=== PATIENT | female | born 1990 | race Caucasian/White ===

== ENCOUNTER 2016-10-23 15:22 | Inpatient (IN) | payer OTHER ==
[~2016-10-23] VITALS: Ht 154.9 cm; Wt 97.5 kg
[2016-10-23 16:20] LABS: ABSOLUTE BASOPHIL COUNT 0 /CUMM (0.0-0.2); ABSOLUTE EOSINOPHIL COUNT 0 /CUMM (0.0-0.7); ABSOLUTE LYMPH COUNT 1.6 /CUMM (1.2-3.4); ABSOLUTE MONOCYTE COUNT 0.7 /CUMM (0.10-0.60); BASOPHIL % 0.3 % (0.0-2.0); EOSINOPHIL % 0.4 % (0-5); HEMATOCRIT 36.5 % (37-47); MEAN CORPUSCULAR HGB 27.5 PG (27.0-31.0); MEAN CORPUSCULAR HGB CONC 33.5 G/DL (33.0-37.0); MEAN CORPUSCULAR VOLUME 81.9 FL (81.0-99.0); MEAN PLATELET VOLUME 10.2 FL (7.4-10.4); PLATELET COUNT 150 /CUMM (130-400); RBC DISTRIBUTION WIDTH 19.6 % (11.5-14.5); RED BLOOD CELL CT 4.46 /CUMM (4.20-5.40); WHITE BLOOD CELL COUNT 9.4 /CUMM (4.8-10.8)
[2016-10-23] MEDS ORDERED: PRENATABS RX T1 EACH PO (16:38)
[2016-10-23] MEDS ORDERED: [UNRECOGNIZED DRUG - OTHER] PO (16:43)
[2016-10-23] MEDS ORDERED: VALACYCLOVIR500 M1 PO (16:44)
--- NOTE | 2016-10-23 18:57 | History & Physical ---
General Information and HPI MD Statement: I have seen and personally examined JUAN JOSE RICHTER and documented this H&P. The patient is a 26 year old female at [39] weeks and [6] days gestation who presented with a chief complaint of [induction of labor]. Source of Information: patient, old records Exam Limitations: no limitations History of Present Illness: 26 yo LMP of 01/18/2016 an MONTSERRAT of 10/24/2016 and presents at 39 weeks 6/7 days for induction of labor. Indication for the induction of labor is that patient recently complained of itching and blood work was drawn on October 17. The results the October 17 blood work showed that her AST and ALT were both normal and out fractionated bile acid profile showed that her colon cancer was elevated at 2.3 (less than 1.8 within normal limits). But she had normal deoxycholic acid normal chenodeoxycholic acid a normal total bile acids. Due to the presence of 1 elevated bile acids value patient was advised for induction of labor. Issues for this #1 first trimester low progesterone she was supported with Crinone gel and 11 weeks of . #2 history of HSV 2 positive. No outbreaks during the she started Valtrex 500 twice a day at 36 weeks #3 light smoker usually smokes 3 cigarettes a day she apparently quit in 2010 Number for elevated BMI her current BMI is 39.9. She started at at the beginning of with a BMI of 31. Patient has been followed with biweekly biophysical profiles due to the elevated BMI. With the patient being at bedrest with her induction she'll have Alps on her lower extremities #4 exposure to parvovirus her fifth disease during . Patient was found to be parvo immune #5 late onset of cholestasis in . Interestingly enough and early July patient was complaining of itching at that time when she was 24 weeks 6/7 days, bile acid panel was negative at that time. #6 group B strep positive. 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 Last Menstrual Period: 01/18/2016 Estimated Delivery Date: 10/24/2016 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 Home Who Do You Live With? spouse, self Primary Language: Omani Smoking Status: Never Smoked ETOH Use: denies use Illicit Drug Use: denies illicit drug use Review of Systems Review of Systems: NEG FOR CARDIAC, PULMONARY, GI, COMPLAINTS Exam & Diagnostic Data Last 24 Hrs of Vital Signs/I&O AFEBRILE VSS Obstetric Exam Wgt Gained During : 51 Pelvimetry: SHOULD BE OK FOR AVGE SIZED BABY Dilation (cm): 1 Effacement (%): 80 Station: -1 Membranes: intact Fluid: unknown Fundal Height (cm): 39 Multiple Gestation? No Contractions: OCCASIONAL #1 - FHR Baseline: 130 Category: 1 Estimated Weight: 7#6 Presentation: VTX Patient for Induction? Yes Beatty Score Beatty Score Response Value Cervix Position: mid-position 1 Cervix Consistency: soft 2 Cervix Effacement: 60-70% 2 Cervix Dilation: 1-2 cm 1 Cervix Station: -1 2 Total 8 Physical Exam General Appearance Alert, Oriented X3, Cooperative, No Acute Distress Skin No Significant Lesion Cardiovascular Regular Rate Lungs Normal Air Movement Abdomen Normal Bowel Sounds Neurological Normal Gait, Normal Speech Extremities No Tenderness/Swelling Reproductive (FEMALE) Normal female genitalia Labs Blood Type & Rh: O+ Antibody Screen: NEG Hct/Hgb & Platelets #1: 13.4/40 199,000 Hct/Hgb & Platelets #2: 10.8/33.3/188,000 Rubella: IMM VDRL #1: N VDRL #2: N HbsAg: N HIV #1: N HIV #2 N 1 Hr P 3 Hr PG: N/A Group B Strep: POS Initial Ultrasound: 04/24/2016 9 W 6/7 WKS S=D=U/S Anatomy Ultrasound: 06/12/2016 20 W 6/7 NL ANATOMY CX 3.[address] VC Ultrasound for EFW: 10/04/2016 37 WKS 6#13oz 51% Genetic Testing: DECLINED Last 24 Hrs of Labs/Will: Laboratory Tests 10/23/16 1604: CBC w Diff NO MAN DIFF REQ, RBC 4.46, MCV 81.9, MCH 27.5, RDW 19.6 H, MPV 10.2, Gran % 74.0, Lymphocytes % 17.5 L, Monocytes % 7.8, Eosinophils % 0.4, Basophils % 0.3, Absolute Granulocytes 7.0 H, Absolute Lymphocytes 1.6, Absolute Monocytes 0.7 H, Absolute Eosinophils 0, Absolute Basophils 0, PUBS MCHC 33.5, Urine Color YEL, Urine Clarity CLEAR, Urine pH 6.5, Ur Specific [place] 1.010, Urine Protein NEG, Urine Ketones NEG, Urine Nitrite NEG, Urine Bilirubin NEG, Urine Urobilinogen 0.2, Ur Leukocyte Esterase TRACE H, Ur Microscopic SEDIMENT EXAMINED, Urine RBC 1-3, Urine WBC 1-3 H, Ur Epithelial Cells FEW, Urine Bacteria FEW H, Urine Hemoglobin SMALL H, Urine Glucose NEG Assessment/Plan Assessment/Plan: IUP 39 6/7 WEEKS BMI 40 (NEG SHOULDER SCREEN) LATE ONSET CHOLESTASIS H/O HSV (NO PRODROMO/ NO LESIONS @ PRESENT) GR B STR + PLAN: ADMIT, LABS, IVF ALPs FOR LEGS CERVIDIL FOR CX RIPENING OVER NIGHT (CONTIN FHR MONITORING) H/O HSV - VALTREX BOD TIL DELIVERED + GR B STR - ONCE SROM/ ACTIVE LABOR: PCN PROTOCAL As Ranked By This Provider Problem List: 1. 2. BMI 40.0-44.9, adult 3. Cholestasis during 4. Group B streptococcal carriage complicating 5. HSV-2 seropositive Core Measures/Miscellaneous Venous Thromboembolism VTE Risk Factors: Obesity, / VTE Contraindications: Active Bleeding VTE Diagnosis: No Beta Nita Is Beta Nita a Home Med? No Antibiotics Is Patient on Antibiotics? Yes If Yes: prophylaxis Attending Review Statement Attending Statement Attending MD Statement: examined this patient, discussed with family, reviewed EMR data (avail), discussed w/nursing
--- NOTE | 2016-10-24 11:43 | PN- OBGYN ---
Surgical Brief Attending Note Brief Attending Note: Late entry for 8:30 AM 26-year-old, G1 para 0 at 39 weeks 6 days intrauterine , she was admitted for induction of labor due to late onset of cholestasis, GBS positive. She received Cervidil for cervical ripening overnight, she did report feels irregular contractions, 5 out of 10 pain scale. Cervix was 1 cm/70%/-1 when Cervidil was removed this morning around 6 AM. PE: VSS on TOCO: irregular ctxs, FHR baseline 130, moderate variability, + acels, no decels. Plan to start Pitocin for continue induction of labor today, R/B/A of Pitocin of induction of labor discussed with patient, she understand and agreed to proceed , will monitor closely.
--- NOTE | 2016-10-24 15:57 | PN- OBGYN ---
Surgical Brief Attending Note Brief Attending Note: pt is comfortable with epidural. no complaints. pitocin at 5mU/min on TOCO; ctxs q 3 min, FHR baseline 130, moderate variability, + acels, no decels. cervix 4cm/60%/-1 will continue current management, monitor closely
[2016-10-24 23:55] VITALS: BP 128/61
--- NOTE | 2016-10-25 06:47 | PN- OBGYN ---
Surgical Brief Attending Note Brief Attending Note: Late entry for 5 AM pt is comfortable with epidural, c/o intermittent rectal pressure. overnight uneventful. she received IV tylenol for elevated temperature 100.5 x 1 on TOVCO: ctxs q3-4 min, FHR baseline 130, moderate variability, + acels, occasional variable decels. cervix 8-9cm/90%/1 ( as per RN) will continue current management. monitor closely
--- NOTE | 2016-10-25 07:27 | PN- OBGYN ---
Surgical Brief Attending Note Brief Attending Note: No complaints. Has epidural. last examined at 5am was 8-9 cm Is laboring down. On PCN prophylaxis for GBS. VSSAF FHTs 130s reactive TOCO q3-4 min Cvx: deferred a/.p 40 weeks. IOL for cholestasis. anticipate pushing and soon. continue abx.
--- NOTE | 2016-10-25 16:03 | Labor & Delivery Summary ---
Delivery Summary Vaginal Delivery: Vaginal: spontaneous Episiotomy/Lacerations: Episiotomy/Lacerations: 2nd degree Placenta: Placenta: spontanteous, normal, 3 vessel Anesthesia: block Baby's Weight: 7 pounds Apgars - 1 Min: 8 Apgars - 5 Min: 9 Additional Comments: The patient percussed to fully dilated and labor down. She pushed for approximately 1 hour and delivered the head without difficulty. She did very loose nuchal cord which was not reduced and she continued to push. Shoulders and the were delivered without difficulty. Good cry was noted. The was dried and bulb suctioned and placed on the maternal abdomen. Delayed cord clamp was observed and the cord was then clamped and cut. Cord blood was sent. Placenta was delivered intact. Second-degree repair was performed in the usual fashion. The patient tolerated well. Normal blood loss noted.
[2016-10-26 09:07] LABS: ABSOLUTE BASOPHIL COUNT 0 /CUMM (0.0-0.2); ABSOLUTE EOSINOPHIL COUNT 0.1 /CUMM (0.0-0.7); ABSOLUTE GRANULOCYTE CT 9.7 /CUMM (1.4-6.5); ABSOLUTE LYMPH COUNT 2.2 /CUMM (1.2-3.4); ABSOLUTE MONOCYTE COUNT 0.9 /CUMM (0.10-0.60); BASOPHIL % 0.4 % (0.0-2.0); EOSINOPHIL % 0.7 % (0-5); HEMATOCRIT 32.5 % (37-47); MEAN CORPUSCULAR HGB 27.6 PG (27.0-31.0); MEAN CORPUSCULAR HGB CONC 33.1 G/DL (33.0-37.0); MEAN CORPUSCULAR VOLUME 83.4 FL (81.0-99.0); MEAN PLATELET VOLUME 11.1 FL (7.4-10.4); PLATELET COUNT 130 /CUMM (130-400); RBC DISTRIBUTION WIDTH 19.9 % (11.5-14.5); RED BLOOD CELL CT 3.89 /CUMM (4.20-5.40); WHITE BLOOD CELL COUNT 12.9 /CUMM (4.8-10.8)
--- NOTE | 2016-10-26 09:48 | PN- OBGYN ---
Surgical Brief Attending Note Brief Attending Note: no complaints. doing well. ambulating, voiding, tolerating pain and po. nursing. nl lochia vssaf FF@U+1 ext 2+ pedal edema b/l no calf tenderness a/p ppd 1. doing well. s/p IOL for cholestais. s/p . Routine pp care. Reviewed discharge instructions for tomorrow.
[2016-10-26] MEDS ORDERED: IBUPROFEN800 M1 PO (09:49)
--- NOTE | 2016-10-27 10:43 | PN- OBGYN ---
Surgical Brief Attending Note Brief Attending Note: NO COMPLAINTS. DOING WELL. AMBULATING, VOIDING, TOLERATING PAIN AND PO. SMALL TO MOD LOCHIA. +NURSING VSSAF FF@U EXT: NO CALF TENDERNESS, 3+ PEDAL EDEMA B/L A/P PPD 2. DOING WELL. DC TO DAY. PRECAUTIONS ADVISED.
== END 2016-10-27 11:34 | DRG 775 ==
LOC: GNO 15:22
PROVIDERS: Obstetrics & Gynecology; ADMIT Obstetrics & Gynecology
PROC: 10E0XZZ Delivery of Products of Conception, External Approach (ICD-10-PCS; principal; 2016-10-25)
PROC: 3E0P7GC Introduction of Other Therapeutic Substance into Female Reproductive, Via Natural or Artificial Opening (ICD-10-PCS; principal; 2016-10-25)
PROC: 0KQM0ZZ Repair Perineum Muscle, Open Approach (ICD-10-PCS; principal; 2016-10-25)
DX: O70.1 Second degree perineal laceration during delivery (principal); K83.1 Obstruction of bile duct; O26.62 Liver and biliary tract disorders in childbirth; Z37.0 Single live birth; Z3A.40 40 weeks gestation of pregnancy; O69.81X0 Labor and delivery complicated by cord around neck, without compression, not applicable or unspecified; O99.824 Streptococcus B carrier state complicating childbirth
CPT/HCPCS: GNOP; GNOS; 81001; 84112; 87086; 88307; J0131; J3490; J7120